=== PATIENT | male | born 1970 | race Caucasian/White ===

== ENCOUNTER 2024-08-01 01:12 | Inpatient (IN) | payer OTHER ==
[~2024-08-01] VITALS: Ht 175.3 cm; Wt 110.0 kg
[2024-08-01] VITALS (13 sets, daily range): BP systolic 105–159; BP diastolic 68–104; PULSE 83–100; RESP 14–30; TEMP 97.1–98.9; O2SAT 91–98
[2024-08-01 01:35] LABS: BASOPHILS # (AUTO) 0.1 X10'3 (0-0.2); BASOPHILS % (AUTO) 1.2 % (0-1); EOSINOPHILS # (AUTO) 0.4 X10'3 (0-0.9); EOSINOPHILS % (AUTO) 5.8 % (0-6); HEMATOCRIT 42.8 % (42.0-52.0); HEMOGLOBIN 14.2 g/dl (14.0-17.9); LYMPHOCYTES # (AUTO) 1.3 X10'3 (1.1-4.8); LYMPHOCYTES % (AUTO) 18.2 % (21-51); MEAN CORPUSCULAR HEMOGLOBIN 27.6 PG (27.0-31.0); MEAN CORPUSCULAR HGB CONC 33.1 g/dL (33.0-36.5); MEAN CORPUSCULAR VOLUME 83.5 FL (78-98); MEAN PLATELET VOLUME 6.8 FL (7.4-10.4); MONOCYTES # (AUTO) 0.3 X10'3 (0-0.9); NEUTROPHILS # (AUTO) 4.9 X10'3 (1.8-7.7); NEUTROPHILS % (AUTO) 69.8 % (42-75); PLATELET COUNT 330 X10'3 (140-440); RED BLOOD COUNT 5.13 X10'6 (4.70-6.10)
[2024-08-01 01:49] LABS: ALANINE AMINOTRANSFERASE 31 U/L (12-78); ALBUMIN 3.4 G/DL (3.4-5.0); ALBUMIN/GLOBULIN RATIO 0.8 (1.1-1.5); ALKALINE PHOSPHATASE 128 IU/L (46-116); ANION GAP 10 (8-16); ASPARTATE AMINO TRANSFERASE 34 U/L (10-37); BLOOD UREA NITROGEN 28 MG/DL (7-18); BUN/CREATININE RATIO 28.6 (10.0-20.0); CALCIUM 8.2 MG/DL (8.5-10.1); CHLORIDE 105 MMOL/L (99-107); CREATININE 0.98 MG/DL (0.60-1.10); GLUCOSE 229 MG/DL (70-104); POTASSIUM 3.8 MMOL/L (3.5-5.1); SODIUM 138 MMOL/L (135-145); TOTAL CARBON DIOXIDE 23.2 MMOL/L (24-32); TOTAL PROTEIN 7.9 G/DL (6.4-8.2); eCRCL 89 ML/MIN; eGFR 81 ML/MIN
[2024-08-01 01:56] LABS: PRO BRAIN NATRIURETIC PEPTIDE 3247 PG/ML (0-125)
[2024-08-01] MEDS: furosemide 10 MG/1 ML 10ml inj IV ONE (02:24)
[2024-08-01 02:49] LABS: BILIRUBIN,URINE NEGATIVE (Neg); CLARITY,URINE CLEAR (Clear); COLOR,URINE YELLOW (Yellow); GLUCOSE, URINE >=1000 mg/dl (Neg); KETONES,URINE NEGATIVE (Neg); LEUKOCYTE ESTERASE ,URINE NEGATIVE (Neg); NITRITES, URINE NEGATIVE (Neg); OCCULT BLOOD,URINE NEGATIVE (Neg); PROTEIN,URINE 30 mg/dl (Neg); UROBILINOGEN,URINE 0.2 E.U/dL (0.2-1.0)
[2024-08-01 03:03] LABS: UA COLLECTION TYPE NON-SPECIFIED
[2024-08-01 03:04] LABS: BACTERIA,URINE FEW /HPF (Neg); RBC,URINE NONE SEEN /HPF (0-2); SQUAMOUS EPITHELIAL CELL,UR FEW /LPF (FEW); WBC,URINE 0-4 /HPF (0-4)
[2024-08-01 03:05] LABS: URINE AMPHETAMINE SCREEN POSITIVE (Neg); URINE BARBITUATE SCREEN NEGATIVE (Neg); URINE BENZODIAZEPINES SCREEN NEGATIVE (Neg); URINE CANNABINOID SCREEN NEGATIVE (Neg); URINE COCAINE SCREEN NEGATIVE (Neg); URINE METHADONE SCREEN NEGATIVE (Neg); URINE OPIATE SCREEN NEGATIVE (Neg); URINE PHENCYCLIDINE SCREEN NEGATIVE (Neg)
[2024-08-01] MEDS ORDERED: mag hydrox/Alum hydrox/simeth 30ml oral suspension PO PRN (03:10)
[2024-08-01] MEDS ORDERED: magnesium hydroxide 30ml (MOM) UD suspension PO PRN (03:10)
[2024-08-01] MEDS ORDERED: TORS20TA3 PO (03:10)
[2024-08-01] MEDS ORDERED: potassium Cl 40MEQ/1/2NS 520ml 520 ML IV PRN (03:10)
[2024-08-01] MEDS ORDERED: magnesium sulf-water 2g/50mL 50 ML IV PRN (03:10)
[2024-08-01] MEDS ORDERED: albuterol 2.5 MG/3 ML nebule NEB PRN (03:10)
[2024-08-01] MEDS ORDERED: potassium Cl 20 mEq SR tablet PO PRN ×2 (03:10)
[2024-08-01] MEDS ORDERED: acetaminophen 325mg tablet PO PRN (03:10)
[2024-08-01] MEDS ORDERED: magnesium sulf-water 4G/100mL 100 ML IV PRN (03:10)
[2024-08-01] MEDS ORDERED: magnesium Cl slow-release 64mg tablet PO PRN (03:10)
[2024-08-01] MEDS ORDERED: GLIP5TAB23 PO (03:11)
[2024-08-01] MEDS ORDERED: ACAM333T8 PO (03:16)
[2024-08-01] MEDS ORDERED: DAPA10TA PO (03:17)
[2024-08-01] MEDS ORDERED: CITA-178 PO (03:18)
[2024-08-01] MEDS ORDERED: CARV-50 PO (03:20)
[2024-08-01] MEDS ORDERED: ATOR40TA PO (03:21)
[2024-08-01] MEDS ORDERED: ASPI-1265 PO (03:22)
[2024-08-01] MEDS ORDERED: LOSA-415 PO (03:23)
[2024-08-01] MEDS ORDERED: SACU1TAB PO (03:24)
[2024-08-01] MEDS ORDERED: GABA300C PO (03:26)
[2024-08-01 03:39] LABS: POTASSIUM 3.7 MMOL/L (3.5-5.1)
[2024-08-01 03:39] LABS: HEMOGLOBIN A1C 6.9 % (4.5-6.2)
[2024-08-01] MEDS ORDERED: dextrose 50%-water 50ml dispensing syringe IV PRN ×2 (03:45)
[2024-08-01] MEDS ORDERED: haloperidol lactate 5mg/ml inj IM PRN (03:45)
[2024-08-01] MEDS ORDERED: haloperidol 5mg tablet PO PRN (03:45)
[2024-08-01] MEDS ORDERED: glucagon, human recombinant 1mg kit SUBCUT PRN (03:45)
[2024-08-01] MEDS ORDERED: LORazepam 2 mg/ml vial IV PRN (03:45)
[2024-08-01] MEDS ORDERED: DEXTROSE 15 GM of carb/4 tabs (each vial/BOTTLE has 4 tablets) PO PRN ×2 (03:45)
[2024-08-01 03:53] LABS: ETHANOL < 10 MG/DL (<10); FREE T4 (FREE THYROXINE) 0.87 NG/DL (0.73-1.40); THYROID STIMULATING HORMONE 2.76 ulU/ml (0.34-4.50)
[2024-08-01] MEDS: ipratropium/albuterol 3ml nebule NEB SCH (04:03)
[2024-08-01] MEDS: INSULIN LISPRO 100 UNIT/ML INSULN.PEN MULTI-DOSE SQ SCH ×2 (07:00→09:00)
[2024-08-01] MEDS: K and/or MAG REPLACEMENT MC SCH (08:00)
[2024-08-01] MEDS: thiamine 100mg/ml 2ml inj. IV SCH (09:05)
[2024-08-01] MEDS: furosemide 10 MG/1 ML 10ml inj IV SCH (09:05)
[2024-08-01] MEDS: heparin, porcine 5000 units/ml vial SQ SCH (09:06)
[2024-08-01] MEDS: docusate sod 100mg capsule PO SCH (09:06)
[2024-08-01] MEDS: Ivermectin 3mg tablet PO SCH (09:06)
[2024-08-01] MEDS: multivitamins, therapeutics tablet PO SCH (09:06)
[2024-08-01] MEDS: folic acid 1mg/0.2ml inj IV SCH (12:45)
[2024-08-01] MEDS ORDERED: ACAMPROSATE 333 MG PO SCH (16:00)
[2024-08-01] MEDS: insulin glargine (Lantus) pen - multi-dose SQ SCH (22:37)
[2024-08-02] VITALS (13 sets, daily range): BP systolic 107–165; BP diastolic 64–109; PULSE 72–103; RESP 18–24; TEMP 97.4–98.2; O2SAT 93–97
[2024-08-02 06:38] LABS: BASOPHILS # (AUTO) 0.1 X10'3 (0-0.2); BASOPHILS % (AUTO) 0.6 % (0-1); EOSINOPHILS # (AUTO) 0.3 X10'3 (0-0.9); EOSINOPHILS % (AUTO) 2.7 % (0-6); HEMATOCRIT 44.7 % (42.0-52.0); HEMOGLOBIN 14.8 g/dl (14.0-17.9); LYMPHOCYTES # (AUTO) 0.8 X10'3 (1.1-4.8); LYMPHOCYTES % (AUTO) 6.4 % (21-51); MEAN CORPUSCULAR HEMOGLOBIN 27.6 PG (27.0-31.0); MEAN CORPUSCULAR VOLUME 83.6 FL (78-98); MEAN PLATELET VOLUME 6.8 FL (7.4-10.4); MONOCYTES # (AUTO) 0.5 X10'3 (0-0.9); MONOCYTES % (AUTO) 4.2 % (2-12); NEUTROPHILS # (AUTO) 10.2 X10'3 (1.8-7.7); NEUTROPHILS % (AUTO) 86.1 % (42-75); PLATELET COUNT 336 X10'3 (140-440); RED BLOOD COUNT 5.35 X10'6 (4.70-6.10); RED CELL DISTRIBUTION WIDTH 16.4 % (11.5-14.5); WHITE BLOOD COUNT 11.8 X10'3 (4.5-11.0)
[2024-08-02 07:13] LABS: ALBUMIN 3.2 G/DL (3.4-5.0); ANION GAP 9 (8-16); BLOOD UREA NITROGEN 26 MG/DL (7-18); BUN/CREATININE RATIO 31.3 (10.0-20.0); CALCIUM 8.8 MG/DL (8.5-10.1); CHLORIDE 103 MMOL/L (99-107); CHOL/HDL RATIO 3.7 (0.00-4.99); CHOLESTEROL 126 MG/DL (0-200); CREATININE 0.83 MG/DL (0.60-1.10); GLUCOSE 119 MG/DL (70-104); HDL CHOLESTEROL 34 MG/DL (35-60); LDL CHOLESTEROL 79 MG/DL (50-100); MAGNESIUM 1.6 MG/DL (1.5-2.4); POTASSIUM 3.5 MMOL/L (3.5-5.1); SODIUM 138 MMOL/L (135-145); TOTAL CARBON DIOXIDE 25.7 MMOL/L (24-32); TRIGLYCERIDES 103 MG/DL (20-135); eCRCL 105 ML/MIN; eGFR > 90 ML/MIN
[2024-08-02] MEDS: spironolactone 25 MG tablet PO SCH (07:20)
[2024-08-02] MEDS: losartan 25mg tablet PO SCH (07:20)
[2024-08-02] MEDS: atorvastatin 20mg tablet PO SCH (07:21)
[2024-08-02] MEDS: aspirin 81mg tab.chew PO SCH (07:21)
[2024-08-02] MEDS: citalopram 20mg tablet PO SCH (07:21)
[2024-08-02] MEDS: gabapentin 300mg capsule PO SCH (07:21)
[2024-08-02] MEDS ORDERED: ipratropium/albuterol 3ml nebule NEB PRN (07:45)
[2024-08-02] MEDS ORDERED: chlorhexidine gluc 4% **topical ** 120ml btl. TP SCH (08:00)
[2024-08-02] MEDS ORDERED: ceFAZolin/D5W- 1GM premix 50 ML IV SCH (08:00)
[2024-08-02] MEDS: carVEDilol 12.5mg tablet PO PRN (19:16)
[2024-08-02] MEDS: furosemide 40mg/4ml inj IV SCH (19:16)
[2024-08-02] MEDS: linezolid 600mg/300ml PREMIX 300 ML IV SCH (19:21)
[2024-08-03] VITALS (14 sets, daily range): BP systolic 115–133; BP diastolic 73–92; PULSE 62–84; RESP 17–24; TEMP 96.9–98.5; O2SAT 93–97
[2024-08-03] MEDS ORDERED: LORazepam 1 MG tablet PO PRN (03:45)
[2024-08-03] MEDS ORDERED: LORazepam 2 mg/ml vial IV PRN (03:45)
[2024-08-03 05:57] LABS: BASOPHILS # (AUTO) 0.1 X10'3 (0-0.2); EOSINOPHILS # (AUTO) 0.4 X10'3 (0-0.9); EOSINOPHILS % (AUTO) 5.1 % (0-6); HEMATOCRIT 45.9 % (42.0-52.0); HEMOGLOBIN 14.8 g/dl (14.0-17.9); LYMPHOCYTES # (AUTO) 1.2 X10'3 (1.1-4.8); LYMPHOCYTES % (AUTO) 15.9 % (21-51); MEAN CORPUSCULAR HGB CONC 32.4 g/dL (33.0-36.5); MEAN CORPUSCULAR VOLUME 83.4 FL (78-98); MONOCYTES # (AUTO) 0.6 X10'3 (0-0.9); MONOCYTES % (AUTO) 7.2 % (2-12); NEUTROPHILS # (AUTO) 5.5 X10'3 (1.8-7.7); NEUTROPHILS % (AUTO) 70.8 % (42-75); PLATELET COUNT 357 X10'3 (140-440); RED CELL DISTRIBUTION WIDTH 16.6 % (11.5-14.5); WHITE BLOOD COUNT 7.8 X10'3 (4.5-11.0)
[2024-08-03 06:14] LABS: ALBUMIN 3.1 G/DL (3.4-5.0); ANION GAP 8 (8-16); BLOOD UREA NITROGEN 29 MG/DL (7-18); BUN/CREATININE RATIO 34.1 (10.0-20.0); CALCIUM 8.9 MG/DL (8.5-10.1); CHLORIDE 101 MMOL/L (99-107); CREATININE 0.85 MG/DL (0.60-1.10); GLUCOSE 122 MG/DL (70-104); MAGNESIUM 1.8 MG/DL (1.5-2.4); POTASSIUM 3.9 MMOL/L (3.5-5.1); SODIUM 138 MMOL/L (135-145); TOTAL CARBON DIOXIDE 28.9 MMOL/L (24-32); eCRCL 103 ML/MIN; eGFR > 90 ML/MIN
[2024-08-03] MEDS: CHLORHEXIDINE GLUCONATE 4% 15 ML topical sol TP SCH (08:00)
[2024-08-03] MEDS: DAPAGLIFLOZIN 10MG TABLET PO SCH (08:00)
[2024-08-03] MEDS: mupirocin 2% ointment 22GM TP SCH (08:00)
[2024-08-03] MEDS: ondansetron/PF 4mg/2ml inj IV PRN (08:27)
[2024-08-03] MEDS: acetaminophen 325mg tablet PO PRN (10:13)
[2024-08-04] VITALS (10 sets, daily range): BP systolic 97–136; BP diastolic 63–93; PULSE 67–77; RESP 14–22; TEMP 97.9–98.7; O2SAT 93–96
[2024-08-04 06:05] LABS: BASOPHILS # (AUTO) 0.1 X10'3 (0-0.2); BASOPHILS % (AUTO) 0.8 % (0-1); EOSINOPHILS # (AUTO) 0.7 X10'3 (0-0.9); EOSINOPHILS % (AUTO) 6.8 % (0-6); HEMATOCRIT 47.4 % (42.0-52.0); HEMOGLOBIN 15.4 g/dl (14.0-17.9); LYMPHOCYTES # (AUTO) 1.4 X10'3 (1.1-4.8); LYMPHOCYTES % (AUTO) 14.7 % (21-51); MEAN CORPUSCULAR HEMOGLOBIN 27.2 PG (27.0-31.0); MEAN CORPUSCULAR HGB CONC 32.5 g/dL (33.0-36.5); MEAN CORPUSCULAR VOLUME 83.6 FL (78-98); MEAN PLATELET VOLUME 6.9 FL (7.4-10.4); MONOCYTES # (AUTO) 0.8 X10'3 (0-0.9); MONOCYTES % (AUTO) 7.8 % (2-12); NEUTROPHILS # (AUTO) 6.8 X10'3 (1.8-7.7); NEUTROPHILS % (AUTO) 69.9 % (42-75); PLATELET COUNT 410 X10'3 (140-440); RED BLOOD COUNT 5.66 X10'6 (4.70-6.10); RED CELL DISTRIBUTION WIDTH 16.6 % (11.5-14.5); WHITE BLOOD COUNT 9.7 X10'3 (4.5-11.0)
[2024-08-04 06:09] LABS: ALBUMIN 3.3 G/DL (3.4-5.0); ANION GAP 5 (8-16); BLOOD UREA NITROGEN 32 MG/DL (7-18); BUN/CREATININE RATIO 28.3 (10.0-20.0); CHLORIDE 99 MMOL/L (99-107); CREATININE 1.13 MG/DL (0.60-1.10); GLUCOSE 104 MG/DL (70-104); SODIUM 137 MMOL/L (135-145); TOTAL CARBON DIOXIDE 32.8 MMOL/L (24-32); eCRCL 77 ML/MIN; eGFR 68 ML/MIN
[2024-08-04] MEDS: thiamine 100mg tablet PO SCH (09:41)
[2024-08-04] MEDS ORDERED: FURO20TA4 PO (09:50)
[2024-08-04] MEDS ORDERED: LINE600T14 PO (09:50)
[2024-08-04] MEDS ORDERED: SPIR25TA PO (12:19)
[2024-08-04] MEDS ORDERED: HYDR-3965 PO (15:20)
[2024-08-05] MEDS ORDERED: LORazepam 2 mg/ml vial IV PRN (03:45)
[2024-08-05] MEDS ORDERED: LORazepam 1 MG tablet PO PRN (03:45)
[2024-08-05] MEDS ORDERED: folic acid 1mg tablet PO SCH (08:00)
== END 2024-08-04 21:48 | disposition home or self-care (01) | DRG 291 ==
LOC: ER 01:14 → ED HOLD 03:11 → ORTHO 4S 05:37
PROVIDERS: ADMIT Internal Medicine; ATTEND Internal Medicine
DX: I50.23 Acute on chronic systolic (congestive) heart failure (principal); G92.8 Other toxic encephalopathy; J44.1 Chronic obstructive pulmonary disease with (acute) exacerbation; L03.115 Cellulitis of right lower limb; Z59.00 Homelessness unspecified; E66.01 Morbid (severe) obesity due to excess calories; Z20.822 Contact with and (suspected) exposure to COVID-19; B86 Scabies; T43.655A Adverse effect of methamphetamines, initial encounter; E11.9 Type 2 diabetes mellitus without complications; I27.20 Pulmonary hypertension, unspecified; F15.10 Other stimulant abuse, uncomplicated; Z88.8 Allergy status to other drugs, medicaments and biological substances; Y92.89 Other specified places as the place of occurrence of the external cause; Z68.35 Body mass index [BMI] 35.0-35.9, adult
CPT/HCPCS: 36415; 71045; 80048; 80053; 80061; 80305; 80320; 81001; 82948; 83036; 83735; 83880; 84132; 84145; 84439; 84443; 84484; 85025; 87070; 87077; 87081; 87186; 87502; 87503; 87811; 93005; 93306; 94640; 94760; 96374; 97161; 97530; 99285; A6258; G0378; J1644; J1815; J1940; J2020; J2405; J3411; J3490